=== PATIENT | male | born 1940 | race Caucasian/White ===

== ENCOUNTER 2019-06-11 07:14 | Emergency (ER) | payer OTHER ==
--- NOTE | 2019-06-11 07:16 | PDOC ---
History of Present Illness - General Chief Complaint: Nasal Bleeding Stated Complaint: NOSE BLEED X 15 MINUTES Time Seen by Provider: 06/11/19 07:16 History Source: Patient Exam Limitations: No Limitations - History of Present Illness Initial Comments: 06/11/19 07:25 Pt presents to the ED complaining of awakening with a nose bleed. States that he awoke and had a few drops of blood, which he then controlled by placing tissue inside it. patient is on eliquis for A fib, so he became concerned and came to the ED. States that he did feel some blood running down the back of his throat. Denies lightheadness. Denies continued bleeding. History of one nose bleed "many years ago" that also stopped spontaneously. Past History - Past Medical History Allergies/Adverse Reactions: Allergies Allergy/AdvReac Type Severity Reaction Status Date / Time No Known Allergies Allergy Verified 06/11/19 07:16 Home Medications: Ambulatory Orders Ascorbic Acid [Vitamin C] 250 mg PO DAILY 09/05/13 Aspirin [ASA -] 81 mg PO DAILY 09/05/13 Cholecalciferol (Vitamin D3) [Vitamin D] 400 unit PO DAILY 09/05/13 Glucosamine Sulfate Dipot Chlr [Glucosamine] 1,000 mg PO DAILY 09/05/13 Ca Cmb No.1/Vit D3/B-6/FA/B12 [Vitamin D3 1,000 Unit Tablet] 1 each PO DAILY tablet 08/15/14 Glucosam/Chondr/Collagn/Hyalur [Glucosamine & Chondroitin Cap] 1 each PO DAILY capsule 08/15/14 [place]-3 Fatty Acids/Fish Oil [Fish Oil 1,000 Mg Capsule] 1 each PO DAILY capsule 08/15/14 Apixaban [Eliquis] 5 mg PO BID 06/11/19 Anemia: No Asthma: No Cancer: No Cardiac Disorders: Yes CVA: No COPD: No CHF: No Dementia: No Diabetes: No GI Disorders: Yes (COLONIC POLYPS) Disorders: No HTN: Yes Hypercholesterolemia: Yes Liver Disease: No Seizures: No Thyroid Disease: No - Surgical History Abdominal Surgery: Yes Appendectomy: Yes Cardiac Surgery: Yes (CARDIAC STENT) Cholecystectomy: No Lung Surgery: No Neurologic Surgery: No Orthopedic Surgery: No - Psycho Social/Smoking Cessation Hx Smoking History: Former smoker Have you smoked in the past 12 months: No Number of Cigarettes Smoked Daily: 0 If you are a former smoker, when did you quit?: 1969 Hx Alcohol Use: Yes Drug/Substance Use Hx: No Substance Use Type: Alcohol Hx Substance Use Treatment: No Review of Systems - Review of Systems Able to Perform ROS?: Yes Is the patient limited Setswana proficient: No Constitutional: No: Symptoms Reported, See HPI, Chills, Diaphoresis, Fever, Loss of Appetite, Malaise, Night Sweats, Weakness, Weight Stable, Unintentional Wgt. Loss, Unexplained wgt Loss, Other HEENTM: Yes: Nose Bleeding. No: Symptoms Reported, See HPI, Eye Pain, Blurred Vision, Tearing, Recent change in vision, Double Vision, Cataracts, Ear Pain, Ocular Prothesis, Ear Discharge, Nose Pain, Nose Congestion, Tinnitus, Hearing Loss, Throat Pain, Throat Swelling, Mouth Pain, Dental Problems, Difficulty Swallowing, Mouth Swelling, Other Respiratory: No: Symptoms reported, See HPI, Cough, Orthopnea, Shortness of Breath, SOB with Exertion, SOB at Rest, Stridor, Wheezing, Productive cough, Hemoptysis, Other Cardiac (ROS): No: Symptoms Reported, See HPI, Chest Pain, Edema, Irregular Heart Rate, Lightheadedness, Palpitations, Syncope, Chest Tightness, Other ABD/GI: No: Symptoms Reported, See HPI, Abdominal Distended, Abd. Pain w/ defecation, Blood Streaked Bowels, Constipated, Diarrhea, Difficulty Swallowing , Nausea, Poor Appetite, Poor Fluid Intake, Rectal Bleeding, Vomiting, Indigestion, Abdominal cramping, Tarry Stools, Other : No: Symptoms Reported, See HPI, Burning, Dysuria, Discharge, Frequency, Flank Pain, Hematuria, Incontinence, Pain, Urgency, Testicular Mass, Testicular Swelling, Lesions, Testicular Pain, Other Musculoskeletal: No: Symptoms Reported, See HPI, Back Pain, Gout, Joint Pain, Joint Swelling, Muscle Pain, Muscle Weakness, Neck Pain, Joint Stiffness, Other *Physical Exam - Physical Exam 06/11/19 07:42 gen: alert, NAD HEENT: no active bleeding, small clot in R nare, no blood in back of throat. Medical Decision Making - Medical Decision Making 06/11/19 07:43 Pt presents to the ED complaining of nose bleed that has apparently resolved. Will observe patient for 30 minutes to ensure that bleeding does not resume. Discharge - Discharge Information Problems reviewed: Yes Clinical Impression/Diagnosis: Epistaxis Condition: Good Disposition: HOME - Admission No - Follow up/Referral Referrals: Vlad Quan MD [Primary Care Provider] - - Patient Discharge Instructions Patient Printed Discharge Instructions: DI for Nosebleed Additional Instructions: you came to the Ed for nose bleed, which had stopped on its own. If the bleeding recurs at home, hold pressure for 15 minutes continuously. If the bleeding still does not stop, return to the Ed. Hold your eliquis for today. Restart it tomorrow. Return to the ED immediately for bleeding that doesn't stop with pressure, lightheadness or passing out, chest pain or shortness of breath, other new or worsening symptoms. - Post Discharge Activity
[2019-06-11 07:25] VITALS: PULSE 86; TEMP 98.2; BMI 26.4
[2019-06-11 07:55] VITALS: BP 124/85
== END 2019-06-11 08:03 | disposition home or self-care (01) ==
LOC: FER 07:14
DX: R04.0 Epistaxis (principal); I48.91 Unspecified atrial fibrillation; Z79.01 Long term (current) use of anticoagulants; I10 Essential (primary) hypertension; E78.00 Pure hypercholesterolemia, unspecified; I51.9 Heart disease, unspecified
CPT/HCPCS: 99281-25

== ENCOUNTER 2020-09-13 12:34 | Emergency (ER) | payer OTHER ==
[2020-09-13] MEDS ORDERED: DIPHTH,PERTUSS(ACELL),TET 0.5 ML DISP.SYRIN IM ONE (12:40)
[2020-09-13 12:50] VITALS: BP 172/104; PULSE 72; TEMP 98.3; BMI 22.8
== END 2020-09-13 14:08 | disposition home or self-care (01) ==
LOC: FER 12:34
PROC: 3E0234Z Introduction of Serum, Toxoid and Vaccine into Muscle, Percutaneous Approach (ICD-10-PCS; principal; 2020-09-13)
DX: S61.011A Laceration without foreign body of right thumb without damage to nail, initial encounter (principal); S61.101A Unspecified open wound of right thumb with damage to nail, initial encounter
CPT/HCPCS: 99284-25

== ENCOUNTER 2021-07-16 04:16 | Day surgery (SDC) | payer OTHER ==
[2021-07-15 08:48] VITALS: BMI 23.7
[2021-07-16] MEDS ORDERED: BUPIVACAINE HCL/PF 0.5% (5MG/ML) 10 ML VIAL ONE ×2 (08:19→09:51)
[2021-07-16] MEDS ORDERED: LIDOCAINE HCL 1%, 10 MG/ML (20ML VIAL) ONE (08:19)
[2021-07-16] MEDS ORDERED: PROPOFOL 20 ML ONE ×2 (09:31)
[2021-07-16] MEDS ORDERED: LIDOCAINE HCL 2% 100 MG/5 ML DISP.SYRIN ONE (09:31)
[2021-07-16] MEDS ORDERED: MIDAZOLAM HCL 2 MG/2 ML SINGLE DOSE VIAL ONE (09:31)
[2021-07-16] MEDS ORDERED: ceFAZolin SODIUM 1 GM VIAL ONE (09:43)
[2021-07-16] MEDS ORDERED: ceFAZolin SODIUM 1 GM VIAL IVPB ONE (09:45)
[2021-07-16] MEDS ORDERED: LIDOCAINE HCL 1%, 10 MG/ML (20ML VIAL) INF ONE (09:50)
[2021-07-16] MEDS ORDERED: BUPIVACAINE HCL/PF 0.5% (5MG/ML) 10 ML VIAL IJ ONE (09:50)
[2021-07-16 10:50] VITALS: TEMP 97.1
[2021-07-16] MEDS ORDERED: ONDANSETRON 4 MG/2 ML VIAL IVPUSH PRN (10:53)
[2021-07-16] MEDS ORDERED: oxyCODONE HCL 5 MG TABLET PO PRN (10:53)
[2021-07-16] MEDS ORDERED: PROMETHAZINE HCL 25 MG/1 ML VIAL IVPB PRN (10:53)
[2021-07-16] MEDS ORDERED: LACTATED RINGERS SOLUTION 1,000 ML IV SCH (11:00)
[2021-07-16 11:26] VITALS: BP 160/101; PULSE 77
== END 2021-07-16 11:50 | disposition home or self-care (01) ==
LOC: JASU-SURG 04:16
PROVIDERS: ATTEND Surgery
PROC: 0JBD0ZZ Excision of Right Upper Arm Subcutaneous Tissue and Fascia, Open Approach (ICD-10-PCS; principal; 2021-07-16 09:30)
DX: C44.622 Squamous cell carcinoma of skin of right upper limb, including shoulder (principal); E11.9 Type 2 diabetes mellitus without complications; I10 Essential (primary) hypertension
CPT/HCPCS: 82962; 88305-TC